=== PATIENT | male | born 1950 | race Caucasian/White ===

== ENCOUNTER → 2021-01-01 | Outpatient (CLI) | payer OTHER | END | disposition home or self-care (01) | LOC: RAD 09:08 | DX: M47.817 Spondylosis without myelopathy or radiculopathy, lumbosacral region (principal); M47.814 Spondylosis without myelopathy or radiculopathy, thoracic region; M43.8X5 Other specified deforming dorsopathies, thoracolumbar region; M41.86 Other forms of scoliosis, lumbar region | CPT/HCPCS: 72070; 72100 ==

== ENCOUNTER 2024-02-01 12:11 | Day surgery (SDC) | payer OTHER ==
[2024-01-28 11:18] LABS: BASOPHILS # (AUTO) 0.1 X10'3 (0-0.2); EOSINOPHILS # (AUTO) 0.3 X10'3 (0-0.9); EOSINOPHILS % (AUTO) 4.4 % (0-6); HEMATOCRIT 45.4 % (42.0-52.0); HEMOGLOBIN 15.2 g/dl (14.0-17.9); LYMPHOCYTES # (AUTO) 1.4 X10'3 (1.1-4.8); MEAN CORPUSCULAR HEMOGLOBIN 31.9 PG (27.0-31.0); MEAN CORPUSCULAR HGB CONC 33.6 g/dL (33.0-36.5); MEAN PLATELET VOLUME 8.7 FL (7.4-10.4); MONOCYTES # (AUTO) 1.2 X10'3 (0-0.9); MONOCYTES % (AUTO) 15.2 % (2-12); NEUTROPHILS # (AUTO) 4.8 X10'3 (1.8-7.7); NEUTROPHILS % (AUTO) 61.4 % (42-75); PLATELET COUNT 229 X10'3 (140-440); RED BLOOD COUNT 4.77 X10'6 (4.70-6.10); RED CELL DISTRIBUTION WIDTH 14.4 % (11.5-14.5); WHITE BLOOD COUNT 7.9 X10'3 (4.5-11.0)
[2024-01-28 11:24] LABS: APTT 26 SECONDS (22-32); INR 1.1 INR; PROTHROMBIN TIME 11.6 SECONDS (9.0-12.0)
[2024-01-28 11:48] LABS: ALBUMIN 3.4 G/DL (3.4-5.0); ANION GAP 6 (8-16); BLOOD UREA NITROGEN 26 MG/DL (7-18); BUN/CREATININE RATIO 20.6 (10.0-20.0); CALCIUM 8.7 MG/DL (8.5-10.1); CHLORIDE 103 MMOL/L (99-107); CHOL/HDL RATIO 2.1 (0.00-4.99); CHOLESTEROL 103 MG/DL (0-200); CREATININE 1.26 MG/DL (0.60-1.10); GLUCOSE 104 MG/DL (70-104); HDL CHOLESTEROL 48 MG/DL (35-60); LDL CHOLESTEROL 48 MG/DL (50-100); POTASSIUM 3.7 MMOL/L (3.5-5.1); SODIUM 137 MMOL/L (135-145); TOTAL CARBON DIOXIDE 27.8 MMOL/L (24-32); TRIGLYCERIDES 45 MG/DL (20-135); eGFR 56 ML/MIN
[2024-02-01] VITALS (10 sets, daily range): BP systolic 115–155; BP diastolic 61–81; PULSE 62–70; RESP 14–16; TEMP 97.3; O2SAT 93–97
[~2024-02-01] VITALS: Ht 170.2 cm; Wt 88.9 kg
[2024-02-01] MEDS ORDERED: HYDR-3964 PO (12:49)
[2024-02-01] MEDS ORDERED: ASPI-611 PO (12:49)
[2024-02-01] MEDS ORDERED: IBUP-24 PO (12:49)
[2024-02-01] MEDS ORDERED: FAMO10TA41 PO (12:49)
[2024-02-01] MEDS ORDERED: PANT40TA54 PO (12:49)
[2024-02-01] MEDS ORDERED: ZOLP5TAB8 PO (12:49)
[2024-02-01] MEDS ORDERED: CYCL-1 PO (12:49)
[2024-02-01] MEDS ORDERED: MAGN100C6 (12:49)
[2024-02-01] MEDS ORDERED: LOSA1TAB36 PO (12:49)
[2024-02-01] MEDS ORDERED: CARV3.122 PO (12:49)
[2024-02-01] MEDS ORDERED: ATOR40TA PO (12:49)
[2024-02-01] MEDS ORDERED: CETI-194 PO (12:49)
[2024-02-01] MEDS: normal saline 1,000 ML IV SCH (13:35)
[2024-02-01] MEDS: diphenhydrAMINE 25mg capsule PO PRN (13:35)
[2024-02-01] MEDS: LORazepam 0.5 MG tablet PO PRN (13:35)
[2024-02-01] MEDS ORDERED: midazolam 1 mg/ML 2ml injection ONE (13:59)
[2024-02-01] MEDS ORDERED: heparin 1,000unit/ml 10ml vial 10 ML ONE (13:59)
[2024-02-01] MEDS ORDERED: LIDOcaine 1% (10mg/ml) 2ml vial ONE (13:59)
[2024-02-01] MEDS ORDERED: verapamil 2.5 mg/ml inj IV ONE (13:59)
[2024-02-01] MEDS ORDERED: fentaNYL/PF 50MCG/1 ML 2ML syringe ONE (13:59)
[2024-02-01] MEDS ORDERED: iohexol 350MG/ML 100ml bottle IV ONE (13:59)
[2024-02-01] MEDS ORDERED: nitroGLYCERIN 500mcg/5mL D5W 5 ML IV ONE (14:00)
== END 2024-02-01 17:20 | disposition home or self-care (01) ==
LOC: SSTAY O 12:11
PROVIDERS: ATTEND Internal Medicine Interventional Cardiology
DX: R94.39 Abnormal result of other cardiovascular function study (principal); R94.31 Abnormal electrocardiogram [ECG] [EKG]; I10 Essential (primary) hypertension; E78.00 Pure hypercholesterolemia, unspecified; G47.33 Obstructive sleep apnea (adult) (pediatric); G47.30 Sleep apnea, unspecified; G47.00 Insomnia, unspecified; M19.90 Unspecified osteoarthritis, unspecified site; Z79.891 Long term (current) use of opiate analgesic; Z79.82 Long term (current) use of aspirin; Z79.899 Other long term (current) drug therapy
CPT/HCPCS: 80048; 80061; 85025; 85610; 85730; 93005; 93458; J1644; J2250; J3010; J3490; J7030; Q0163; Q9967; 99152; 99153; A6258; A6402; C1769; C1894